=== PATIENT | male | born 1980 | race Caucasian/White ===

== ENCOUNTER 2019-02-08 13:21 | Emergency (ER) | payer MEDICAID ==
[~2019-02-08] VITALS: Ht 165.1 cm; Wt 80.0 kg
[2019-02-08 13:45] VITALS: Ht 165.1 cm; Wt 80.0 kg
--- NOTE | 2019-02-08 18:03 | ERD ---
ER Documentation Chief Complaint Chief Complaint ROBLES X 5 DAYS HPI 38-year-old male, recently arrived from [facility], presents to the emergency department complaining of 5 days with persistent headache, the patient also reports difficulty sleeping and anxiety. He denies any distal weakness, no numbness or tingling. No past medical history. The patient denies chest pain, no shortness of breath, no rashes. ROS All systems reviewed and are negative except as per history of present illness. Medications Home Meds Active Scripts Lorazepam* (Ativan*) 0.5 Mg Tablet, 0.5 MG PO QHS PRN for ANXIETY, #10 TAB Prov:CHASITY SANTOS MD 02/08/19 Acetaminophen* (Tylenol*) 325 Mg Tablet, 2 TAB PO Q8 PRN for PAIN AND OR ELEVATED TEMP, #20 TAB Prov:CHASITY SANTOS MD 02/08/19 Allergies Allergies: Coded Allergies: No Known Allergy (Unverified , 02/08/19) FmHx Family History: No diabetes, No coronary disease Physical Exam Vitals Vital Signs Date Temp Pulse Resp B/P (MAP) Pulse Ox O2 O2 Flow FiO2 Time Delivery Rate 02/08/19 98.3 78 18 131/79 98 13:45 (96) Physical Exam Const: No acute distress Head: Atraumatic Eyes: Normal Conjunctiva ENT: Normal External Ears, Nose and Mouth. Neck: Full range of motion. No meningismus. Resp: Clear to auscultation bilaterally Cardio: Regular rate and rhythm, no murmurs Abd: Soft, non tender, non distended. Normal bowel sounds Skin: No petechiae or rashes Back: No midline or flank tenderness Ext: No cyanosis, or edema Neur: Awake and alert Psych: Normal Mood and Affect Results 24 hrs Laboratory Tests Test 02/08/19 18:32 02/08/19 18:38 Bedside Urine pH (LAB) 5.5 Bedside Urine Protein (LAB) Negative Bedside Urine Glucose (UA) Negative Bedside Urine Ketones (LAB) Negative Bedside Urine Blood Trace-intact Bedside Urine Nitrite (LAB) Negative Bedside Urine Leukocyte Esterase (L Negative Bedside Glucose 105 mg/dL Current Medications Medications Dose Sig/Yovana Start Time Status Last (Trade) Ordered Route PRN Stop Time Admin Dose Reason Admin Ketorolac 30 mg ONCE STAT 02/08/19 DC 02/08/19 Tromethamine IM 18:16 18:40 (Toradol) 02/08/19 18:37 Procedures/MDM Vital signs stable, Physical exam unremarkable, neurovascular exam intact. Differential diagnosis include but not limited to: Classical migraine, sinusitis, visual corrective problems, side effects of medications, dehydration, electrolyte imbalance, endocrine/autoimmune medical condition, stress, anxiety, tension headache. Low suspicion for meningitis, [employer] tumor, cerebrovascular event. Physical examination and clinical presentation consistent most likely with tension headache. During the ED course the patient remained stable, no new complaints. The patient received treatment with Toradol IM presenting overall improvement of the symptoms. Results and clinical impression discussed with patient who agrees with management. The patient is stable to be treated outpatient and will be discharged home, some side effects of prescribed medications (headache, rash, nausea, vomiting, diarrhea, drowsiness, habituation, bleeding, hypertension, interactions with other medications) were reviewed. Follow up with the primary care provider in the next 48h has been recommended. If symptoms persist, worsen or new symptoms develop, then patient should return to the ED immediately. Instructions explained and given directly by me to the patient with acknowledgment and demonstrated understanding. Disclaimer: Inadvertent spelling and grammatical errors are likely due to EHR/dictation software use and do not reflect on the overall quality of patient care. Also, please note that the electronic time recorded on this note does not necessarily reflect the actual time of the patient encounter. Departure Diagnosis: Primary Impression: Tension headache Condition: Stable Additional Instructions: Muchas ina por [facility] para lindsay servicio. Esperamos que en lindsay visita a la gustavo de emergencia lindsay problema medico haya sido solucionado y que se sienta mucho mejor. Para estar seguros que lindsay mejoria sigue en proceso, le pedimos el favor de hacer iman krystin de seguimiento medico con lindsay doctor primario en los proximos 2-4 forbes. Lleve con usted estos documentos y las medicinas recetadas. Si kaylynn sintomas empeoran, NO SE ESPERE, por favor regrese a gustavo de emergencia INMEDIATAMENTE. En eve que usted no tenga un mdico de atencin primaria: Llame al mdico o clnica comunitaria de referencia que aparece abajo zachary las horas de consultorio para hacer iman krystin para que le vean. CLINICAS: [facility] [id number] [facility] [id number] [facility] [phone] [facility] [phone] [place] [phone] [id number] [facility]. [phone] CHASITY GOLDMAN MD Feb 08, 2019 18:03
[2019-02-08] MEDS ORDERED: KETOROLAC 30 MG INJ IM STA (18:16)
[2019-02-08] MEDS ORDERED: ACET325T33 PO (18:50)
[2019-02-08] MEDS ORDERED: LORA-441 PO (18:50)
[2019-02-08 19:02] VITALS: BP 141/80; PULSE 61; RESP 16
== END 2019-02-08 19:03 | disposition home or self-care (01) ==
LOC: FTE 13:21
DX: G44.209 Tension-type headache, unspecified, not intractable (principal)
CPT/HCPCS: 81003; 82962; 93005; 96372; J1885; Z7502